=== PATIENT | male | born 2000 | race American Indian/Alaskan Native ===

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

== ENCOUNTER 2018-10-05 12:07 | Emergency (ER) | payer OTHER ==
[2018-10-05 12:26] VITALS: BP 144/90
--- NOTE | 2018-10-05 13:12 | Emergency Department Report ---
ED Extremity Problem HPI - General Chief complaint: Extremity Injury, Lower Stated complaint: R ANKLE PAIN Time Seen by Provider: 10/05/18 12:45 Source: patient Mode of arrival: Ambulatory Limitations: No Limitations - History of Present Illness Initial comments: 18-year-old male presents with right foot and ankle pain since yesterday. Patient states he was playing basketball and landed the wrong way on his right foot. Patient currently with pain to the right foot and ankle, swelling associated. MD Complaint: extremity pain -: days(s) (1) Location: right, lower extremity -: Yes arthralgia Radiation: none Severity scale (0 -10): 7 Quality: aching Consistency: intermittent Improves with: immobilization Worsens with: weight bearing, walking, palpation Associated Symptoms: denies other symptoms - Related Data Previous Rx's Medication Instructions Recorded Last Taken Type Hydrocodone Bit/Acetaminophen 1 each PO Q8HR PRN #10 tablet 04/22/13 Unknown Rx [Lortab 5-500 Tablet] Amoxicillin/K Clav Tab [Augmentin 1 each PO BID 10 Days #20 tablet 11/16/17 Unknown Rx 875MG TAB] Ibuprofen [Motrin 800 MG tab] 800 mg PO TID PRN #30 tablet 11/16/17 Unknown Rx Naproxen [Naprosyn] 500 mg PO BID #20 tablet 10/05/18 Unknown Rx traMADol [Ultram] 50 mg PO Q6HR PRN #7 tablet 10/05/18 Unknown Rx Allergies Allergy/AdvReac Type Severity Reaction Status Date / Time No Known Allergies Allergy Verified 10/05/18 12:08 ED Review of Systems ROS: Stated complaint: R ANKLE PAIN Other details as noted in HPI Comment: All other systems reviewed and negative Musculoskeletal: as per HPI Neurological: denies: numbness, paresthesias ED Past Medical Hx - Past Medical History Previous Medical History?: No - Surgical History Past Surgical History?: No - Social History Smoking Status: Never Smoker Substance Use Type: None - Medications Home Medications: Home Medications Medication Instructions Recorded Confirmed Last Taken Type Hydrocodone Bit/Acetaminophen 1 each PO Q8HR PRN #10 tablet 04/22/13 Unknown Rx [Lortab 5-500 Tablet] Amoxicillin/K Clav Tab [Augmentin 1 each PO BID 10 Days #20 tablet 11/16/17 Unknown Rx 875MG TAB] Ibuprofen [Motrin 800 MG tab] 800 mg PO TID PRN #30 tablet 11/16/17 Unknown Rx Naproxen [Naprosyn] 500 mg PO BID #20 tablet 10/05/18 Unknown Rx traMADol [Ultram] 50 mg PO Q6HR PRN #7 tablet 10/05/18 Unknown Rx ED Physical Exam - General Limitations: No Limitations General appearance: alert, in no apparent distress - Head Head exam: Present: atraumatic, normocephalic - Eye Eye exam: Present: normal appearance - ENT ENT exam: Present: mucous membranes moist - Neck Neck exam: Present: normal inspection - Respiratory Respiratory exam: Present: normal lung sounds bilaterally. Absent: respiratory distress - Cardiovascular Cardiovascular Exam: Present: normal rhythm, bradycardia - GI/Abdominal GI/Abdominal exam: Absent: distended - Extremities Exam Extremities exam: Present: other (tenderness to lateral right ankle and foot w/ moderate swelling) - Neurological Exam Neurological exam: Present: alert, oriented X3. Absent: motor sensory deficit - Psychiatric Psychiatric exam: Present: normal affect, normal mood - Skin Skin exam: Present: warm, dry, intact, normal color ED Course Vital Signs 10/05/18 12:25 Temperature 97.8 F Pulse Rate 55 L Respiratory 18 Rate Blood Pressure 144/90 O2 Sat by Pulse 99 Oximetry ED Medical Decision Making - Radiology Data Radiology results: report reviewed, image reviewed - Medical Decision Making - possible chip fracture - no larger acute fractures seen - Differential Diagnosis fracture, sprain Critical care attestation.: If time is entered above; I have spent that time in minutes in the direct care of this critically ill patient, excluding procedure time. ED Disposition Clinical Impression: Sprain of foot, right, Displaced avulsion fracture (chip fracture) of right talus, initial encounter for closed fracture Disposition: DC-01 TO HOME OR SELFCARE Is pt being admited?: No Condition: Stable Instructions: Foot Sprain (ED) Prescriptions: Naproxen [Naprosyn] 500 mg PO BID #20 tablet traMADol [Ultram] 50 mg PO Q6HR PRN #7 tablet PRN Reason: Pain Referrals: EVE KAUFFMAN MD [Staff Physician] - 3-5 Days Time of Disposition: 14:22
--- NOTE | 2018-10-05 14:07 | XRay Report ---
PROCEDURE: XR ANKLE 3+V RT, XR FOOT 3+V RT TECHNIQUE: 3 views right ankle. 3 views right foot. Combined dictation for both exams. HISTORY: pain, injury COMPARISONS: None FINDINGS: Distal tib-fib intact without acute fracture or malalignment. No significant soft tissue swelling abo ut the ankle. Ankle joint space normal. No significant degenerative change. Calcaneal spur Fragments along the anterior dorsal margin of the talus which may represent chip fracture. Remainder of the foot intact without acute fracture or malalignment. Mild hallux valgus deformity. Foot joint space is maintained. There is otherwise no acute fracture or malalignment. No radiopaque foreign body IMPRESSION: Small bone fragments adjacent to the anterior distal talus. Clinical correlation for point symptomato logy. Finding may represent acute chip fracture. The foot and ankle otherwise demonstrate no acute fracture or malalignment No significant degenerative change. This document is electronically signed by Jonas Hammer MD., October 05 2018 02:05:03 PM ET
== END 2018-10-05 14:39 | disposition home or self-care (01) ==
LOC: ED 12:07
DX: S92.151A Displaced avulsion fracture (chip fracture) of right talus, initial encounter for closed fracture (principal); S93.601A Unspecified sprain of right foot, initial encounter; X58.XXXA Exposure to other specified factors, initial encounter; Y93.89 Activity, other specified; Y92.89 Other specified places as the place of occurrence of the external cause; Y99.8 Other external cause status

== ENCOUNTER 2021-09-05 18:04 | Emergency (ER) | payer SELFPAY ==
[2021-09-05 22:05] VITALS: BP 132/91
[2021-09-06] MEDS ORDERED: KETOROLAC 60 MG/2 ML INJ IM ONE (00:23)
[2021-09-06] MEDS ORDERED: LIDOCAINE-MPF (1%) 10 MG/1 ML VIAL 5 ML INFILTRATI ONE (01:51)
[2021-09-06] MEDS ORDERED: AZITHROMYCIN 1 GM ORAL PWDR PACKET PO ONE (01:53)
== END 2021-09-06 03:09 | disposition home or self-care (01) ==
LOC: ED 18:04
DX: J03.90 Acute tonsillitis, unspecified (principal)
CPT/HCPCS: 87116; 87430; 96372; 99283; J0696; J1885; J3490

== ENCOUNTER 2021-09-07 15:47 | Emergency (ER) | payer SELFPAY ==
[2021-09-07] MEDS ORDERED: dexAMETHasone 20 MG/5 ML VIAL IV ONE (15:57)
[2021-09-07] MEDS ORDERED: SODIUM CHLORIDE 0.9% 1000 ML 1,000 ML IV ONE (15:57)
[2021-09-07] MEDS ORDERED: BENZOCAINE 20% TOP SPRAY 0.5 ML UNIT DOSE MM SCH (16:00)
--- NOTE | 2021-09-07 16:04 | Emergency Department Report ---
ED ENT HPI - General Chief complaint: Sore Throat Stated complaint: SORE THROAT Time Seen by Provider: 09/07/21 15:56 Source: EMS Mode of arrival: Stretcher Limitations: No Limitations - History of Present Illness Initial comments: Patient presents by ambulance secondary to a sore throat. He has had a sore throat severely for the last 2 to 3 days. He has not eaten in 2 to 3 days due to the pain. Pain is constant, burning, and aching. He has neck pain associated with this. Patient denies any known sick contact. He has had no known strep throat exposure. There has been no vomiting or diarrhea. He has had subjective fevers but has not had a documented temperature. Patient has no unusual rash. He has no abdominal pain or back pain. He simply cannot eat because of the pain. He cannot drink because of the pain. EMS did report giving him IV fluids. Patient has not been on antibiotics lately. He has had no known exposure to mononucleosis. - Related Data Previous Rx's Medication Instructions Recorded Last Taken Type Amoxicillin/K Clav Tab [Augmentin 1 each PO BID 10 Days #20 tablet 11/16/17 Unknown Rx 875MG TAB] HYDROcodone/ACETAMINOPHEN [Lortab 10 ml PO 4XD PRN #120 ml 09/07/21 Unknown Rx 10 mg-300 mg per 15 ML ORAL LIQ] Allergies Allergy/AdvReac Type Severity Reaction Status Date / Time No Known Allergies Allergy Verified 09/07/21 15:51 ED Dental HPI - General Chief complaint: Sore Throat Stated complaint: SORE THROAT Time Seen by Provider: 09/07/21 15:56 Source: EMS Mode of arrival: Stretcher Limitations: No Limitations - Related Data Previous Rx's Medication Instructions Recorded Last Taken Type Amoxicillin/K Clav Tab [Augmentin 1 each PO BID 10 Days #20 tablet 11/16/17 Unkn own Rx 875MG TAB] HYDROcodone/ACETAMINOPHEN [Lortab 10 ml PO 4XD PRN #120 ml 09/07/21 Unknown Rx 10 mg-300 mg per 15 ML ORAL LIQ] Allergies Allergy/AdvReac Type Severity Reaction Status Date / Time No Known Allergies Allergy Verified 09/07/21 15:51 ED Review of Systems ROS: Stated complaint: SORE THROAT Other details as noted in HPI Comment: All other systems reviewed and negative Constitutional: fever (Subjective) Eyes: denies: eye pain ENT: as per HPI Respiratory: denies: cough Cardiovascular: denies: chest pain Endocrine: denies: unexplained weight loss Gastrointestinal: denies: abdominal pain Genitourinary: denies: dysuria Musculoskeletal: denies: back pain Skin: denies: rash Neurological: denies: headache Hematological/Lymphatic: denies: easy bruising ED Past Medical Hx - Past Medical History Previous Medical History?: No - Family History Family history: no significant - Social History Smoking Status: Never Smoker Substance Use Type: None - Medications Home Medications: Home Medications Medication Instructions Recorded Confirmed Last Taken Type Amoxicillin/K Clav Tab [Augmentin 1 each PO BID 10 Days #20 tablet 11/16/17 Unknown Rx 875MG TAB] HYDROcodone/ACETAMINOPHEN [Lortab 10 ml PO 4XD PRN #120 ml 09/07/21 Unknown Rx 10 mg-300 mg per 15 ML ORAL LIQ] ED Physical Exam - General Limitations: Physical Limitation (Pain with phonation), Other (Pulse ox noted and normal) General appearance: alert, in no apparent distress, other (Appears uncomfortable) - Head Head exam: Present: atraumatic, normocephalic - Eye Eye exam: Present: normal appearance, PERRL, EOMI. Absent: scleral icterus - ENT ENT exam: Present: normal external ear exam, other (Diffuse tonsillar hypertrophy and exudate, right greater than left. Uvula is midline.) - Neck Neck exam: Present: normal inspection, tenderness (Anterior cervical), lymphadenopathy (Anterior cervical). Absent: meningismus - Respiratory Respiratory exam: Present: normal lung sounds bilaterally. Absent: respiratory distress - Cardiovascular Cardiovascular Exam: Present: regular rate, normal rhythm - GI/Abdominal GI/Abdominal exam: Present: soft. Absent: distended, tenderness - Extremities Exam Extremities exam: Present: normal capillary refill - Back Exam Back exam: Absent: CVA tenderness (R), CVA tenderness (L) - Neurological Exam Neurological exam: Present: alert, oriented X3, CN II-XII intact. Absent: motor sensory deficit - Psychiatric Psychiatric exam: Present: normal affect, normal mood - Skin Skin exam: Present: warm, dry ED Course Vital Signs 09/07/21 09/07/21 09/07/21 15:48 16:25 19:32 Temperature 98 F 98.0 F Pulse Rate 90 78 80 Respiratory 18 18 14 Rate Blood Pressure 129/84 130/71 132/86 [Left] O2 Sat by Pulse 99 100 100 Oximetry - Reevaluation(s) Reevaluation #1: 09/07/21 15:51 EMS was met upon arrival. IV and occasions were ordered. Old records reviewed. Reevaluation #2: 09/07/21 19:03 Rapid strep was reported negative. ED Medical Decision Making - Lab Data Result diagrams: 09/07/21 16:12 - Medical Decision Making Patient presented by ambulance secondary to sore throat. He does have evidence of an exudative pharyngitis. This does not appear to be strep based on a rapid strep although the sensitivity of this test is not 100%. Patient does not have posterior lymphadenopathy suggestive of mononucleosis. There is no airway compromise. He has been hydrated. There is no vomiting. He has no known exposure to coronavirus. There is no penile discharge. I am not concerned that this could represent gonococcal pharyngitis. Patient was treated symptomatically and referred for outpatient evaluation. He had been given a dose of antibiotics here while waiting on the strep test. These will not be continued. Critical Care Time: No Critical care attestation.: If time is entered above; I have spent that time in minutes in the direct care of this critically ill patient, excluding procedure time. ED Disposition Clinical Impression: Exudative pharyngitis, Dehydration, Viral pharyngitis Disposition: 01 HOME / SELF CARE / HOMELESS Is pt being admited?: No Condition: Stable Instructions: Dehydration, Adult, [id number], Rehydration, Adult, Pharyngitis, [id number] Additional Instructions: Use salt water gargles. Drink plenty of fluids. Return for problems. Follow- up with your regular doctor or the referral doctor for recheck and further management. Prescriptions: HYDROcodone/ACETAMINOPHEN [Lortab 10 mg-300 mg per 15 ML ORAL LIQ] 10 ml PO 4XD PRN #120 ml PRN Reason: Pain, Moderate (4-6) Referrals: GI WALKER MD [Primary Care Provider] - 3-5 Days GORDO GALLEGOS MD [Staff Physician] - 3-5 Days Forms: Work/School Release Form(ED)
[2021-09-07 16:40] LABS: BUN/Creatinine Ratio 14; Blood Urea Nitrogen 17 mg/dL (9-20); Hemolysis Index 10
[2021-09-07 19:33] VITALS: BP 132/86
== END 2021-09-07 19:33 | disposition home or self-care (01) ==
LOC: ED 15:47
DX: J02.8 Acute pharyngitis due to other specified organisms (principal); B97.89 Other viral agents as the cause of diseases classified elsewhere; E86.0 Dehydration; Z79.899 Other long term (current) drug therapy
CPT/HCPCS: 36415; 80048; 87116; 87430; 96361; 96374; 99284; J1100; J7030; Q0162